=== PATIENT | male | born 1990 | race Caucasian/White ===

== ENCOUNTER 2016-05-28 15:42 | Emergency (ER) | payer MEDICAID ==
[2016-05-28] MEDS ORDERED: NS 1,000 ML IV ONE (16:10)
[2016-05-28] MEDS ORDERED: HYDROmorphONE/DILAUDID 1 MG/ML SYR IVP ONE (16:10)
[2016-05-28 16:28] VITALS: O2SAT 97
--- NOTE | 2016-05-28 16:31 | EDPHY ---
General Time Seen by Provider: 05/28/16 16:05 Narrative: CHIEF COMPLAINT: Left shoulder injury HISTORY OF PRESENT ILLNESS: Patient was skiing this afternoon at [place] when he fell after landing a jump. He fell awkwardly on his left shoulder but he does not know the details. He provides a video of such but it is difficult to see exactly how he landed. He denies head injury or loss of conscious. He felt a sudden onset of pain in the left shoulder. He feels that it was dislocated at the time. Some paresthesia of the left pinky. No wrist drop. No weakness of the left arm. No injury elsewhere. He is right-hand dominant. He has had multiple dislocations of the left shoulder in the past. He has had 1 surgical repair of the slap injury. This was 4 years ago. He does not have an orthopedist in this area as he is from [place]. PRIOR ORTHO INJURIES: Recurrent left shoulder dislocations ESTABLISHED ORTHOPEDIST: None currently REVIEW OF SYSTEMS: Ten systems reviewed and are negative unless otherwise noted in the HPI EXAMINATION General Appearance: Alert, no distress Cardiovascular: Pulses normal throughout. Symmetric radial pulses are 2+. Brisk cap refill Neurological: A&O, sensory symmetric, strength symmetric. No wrist drop of the left upper extremity. Skin: Warm and dry, no rash. No lacerations, abrasions or ecchymosis. Extremities: Range of motion of the left shoulder not tested secondary to pain. Range of motion of the left hand, wrist and elbows fully intact without wrist drop. Strength is symmetric with good interossei. Left shoulder does not appear dislocated a rounded. There is edema about the left shoulder joint. Psychiatric: Mood and affect normal DIFFERENTIAL DIAGNOSES: Including but not limited to dislocation, subluxation, fracture, fracture dislocation, sprain, strain MDM: 4:45 p.m. Acute left shoulder sprain. There was likely subluxation or dislocation that auto reduced in transit from [place]. There is no obvious abnormality on x-ray including no evidence of dislocation. He is neurovascular intact distal to the left shoulder pain. The patient has a sling at home from previous dislocations. To be discharged home at his request without a sling as he can place his own at home. He is discharged home neurovascular intact with instructions to refrain from abduction or flexion of the left shoulder. He has contact Orthopedics for definitive care prior to ranging the shoulder fully. He is comfortable with this plan and discharged home stable condition. ED Precautions: Worsening pain. Erythema, edema, cyanosis, pallor, paresthesia or anesthesia. SUPERVISION: This patient was independently evaluated without direct examination by the attending physician. Case was discussed with attending physician. - History Smoking Status: Never smoked - Objective Vital Signs: Initial Vital Signs Heart Rate 74 05/28/16 15:49 Respiratory Rate 12 05/28/16 15:49 Blood Pressure 150/89 H 05/28/16 15:49 O2 Sat (%) 98 05/28/16 15:49 O2 Delivery Mode Nasal Cannula O2 (L/minute) 1 Allergies/Adverse Reactions: No Known Allergies Allergy (Unverified 05/28/16 15:48) Home Medications: Medication Instructions Recorded Adderall 10 MG (*) 05/28/16 oxyCODONE HCL/ACETAMINOPHEN 1 each PO Q4-6PRN PRN #20 tablet 05/28/16 [Percocet 5-325 mg Tablet] traZODone 05/28/16 Departure - Departure Disposition: Home, Routine, Self-Care Clinical Impression: Subluxation Sprain of shoulder, left Qualifiers: Encounter type: initial encounter Shoulder sprain type: unspecified sprain Qualified Code(s): S43.402A - Unspecified sprain of left shoulder joint, initial encounter Condition: Good Instructions: Shoulder Sprain (ED) Additional Instructions: Orthopedic treatment as discussed. Follow up with orthopedist of choice or orthopedist on-call as listed. Avoid abduction of the shoulder. Avoid flexion of the shoulder. Is soon to return home, placed herself in your previous sling. Return to the ER for new neurovascular changes as discussed. Referrals: Patient,NotPresent [Unknown] - As per Instructions Cong Richey MD [Medical Doctor] - As per Instructions Prescriptions: oxyCODONE HCL/ACETAMINOPHEN [Percocet 5-325 mg Tablet] 1 each PO Q4-6PRN PRN # 20 tablet PRN Reason: Pain, Breakthrough
[2016-05-28 17:12] VITALS: BP 138/93; PULSE 61; RESP 15; TEMP 98.8
== END 2016-05-28 17:14 | disposition home or self-care (01) ==
DX: S43.005A Unspecified dislocation of left shoulder joint, initial encounter (principal); S43.402A Unspecified sprain of left shoulder joint, initial encounter; W18.39XA Other fall on same level, initial encounter; Y93.39 Activity, other involving climbing, rappelling and jumping off
CPT/HCPCS: 96374; J1170